=== PATIENT | male | born 1995 | race Caucasian/White ===

== ENCOUNTER 2018-08-29 21:30 | Emergency (ER) | payer SELFPAY ==
[2018-08-29 21:32] VITALS: BP 130/72; PULSE 67; RESP 18; TEMP 36.7; O2SAT 97; BMI 24.5
--- NOTE | 2018-08-29 21:57 | ED.VISSUMM ---
- ER Visit Summary Date of Service: 08/29/18 Chief Complaint: Rash History of Present Illness: The patient is a 23 M with no primary care physician. He reports that he has a rash that began approximately 10 days ago. States that it began on his right thigh. It is now moved to the back of his right wrist and left leg. States that it does itch. Patient denies any change in soap, shampoo, laundry detergent, or fabric softener. No new clothing, bedding, carpeting, or pets. No new medications in the past month. Review of systems: General: No fever, chills, cold sweats. Cardiovascular: No chest pain, palpitations. Respiratory: No cough, shortness of breath, dyspnea on exertion. Gastrointestinal: No abdominal pain, nausea, vomiting, diarrhea, melena, or hematochezia. Genitourinary: No dysuria, frequency, hematuria. Skin: No rash. Neuro: No headache, numbness, weakness. Physical Examination: Vitals: Stable. Afebrile. General: Well-nourished and well-developed. Head: Normocephalic atraumatic. Neck: Supple, no lymphadenopathy. No JVD. Nontender. Cardiovascular: Regular rate and rhythm. No murmurs. Respiratory: No respiratory distress. Clear to auscultation bilaterally. Abdominal: Soft, nontender, nondistended, normal bowel sounds. No guarding, rebound, or peritoneal signs. Back: Nontender. Extremities: Nontender, no edema. Skin: Approximately dime sized area of erythema x2 to the medial left distal thigh. There is no induration or fluctuance to suggest infection. He has approximately 1 mm maculopapular lesions to the back of his right wrist and the back of his left calf. There is no surrounding erythema or induration.. Neurologic: Alert and oriented ?3. Cranial nerves II through XII are intact. Normal strength and sensation. Psych: Normal affect. Emergency Department Course and Treatment: I discussed with the patient at this time I do not have an explanation for what this is. However, it does not look life-threatening. He drove himself here and was not given Benadryl. Treatment Plan: Patient will be discharged with Zyrtec and Kenalog ointment. Instructed to follow-up the [facility] in 1-2 days if not improving. Return to the emergency department for any worsening symptoms. Disposition: To home in improved and stable condition. Impression: 1. Rash, uncertain cause. This note was generated with [employer] dictation software. It may contain incorrect words, spelling, and punctuation that were not noted in review of the chart prior to signing ED Disposition - Plan for ED Patient: Disposition: Home or Assisted Living Instructions: ED Dermatitis Non Specific Rash Prescriptions: Cetirizine HCl [Zyrtec] 10 mg PO DAILY #14 capsule Triamcinolone 0.5% Cream [Kenalog] 1 applic TOPICAL BID #1 tube Referrals: Kay Snider [NON-STAFF] - 1 Week if not improving
[2018-08-29 22:16] VITALS: RESP 16
== END 2018-08-29 22:18 | disposition home or self-care (01) ==
LOC: ED 22:11
PROVIDERS: Emergency Provider Emergency Medicine
DX: R21 Rash and other nonspecific skin eruption (principal); F17.210 Nicotine dependence, cigarettes, uncomplicated
CPT/HCPCS: 99282